=== PATIENT | female | born 1965 | race Caucasian/White ===

== ENCOUNTER 2017-11-07 23:33 | Emergency (ER) | payer SELFPAY ==
[~2017-11-07] VITALS: Ht 175.3 cm; Wt 81.7 kg
[~2017-11-07 23:33] MED LIST: CIPR250 PO; IBUP400 PO; NAPR500 PO; TRAM50 PO
[2017-11-08] MEDS ORDERED: Estroven Regu400 MCG PO (00:03)
[2017-11-08] MEDS ORDERED: Cleocin HCl300 MG PO (00:04)
== END 2017-11-08 00:31 | disposition home or self-care (01) ==
LOC: ER 23:33
DX: K04.7 Periapical abscess without sinus (principal); Z88.0 Allergy status to penicillin; F17.200 Nicotine dependence, unspecified, uncomplicated; Z88.2 Allergy status to sulfonamides; Z79.899 Other long term (current) drug therapy; Z79.2 Long term (current) use of antibiotics
CPT/HCPCS: 99283

== ENCOUNTER 2019-04-24 12:42 | Emergency (ER) | payer OTHER ==
[~2019-04-24] VITALS: Ht 175.3 cm; Wt 81.7 kg
[~2019-04-24 12:42] MED LIST changes: +Cleocin HCl300 MG PO; +Estroven Regu400 MCG PO
[2019-04-24 13:34] LABS: Source, Urine Clean Catch
[2019-04-24 13:37] LABS: Bilirubin, Urine Neg (Neg); Blood, Urine 1+ (Neg); Glucose Qualitative, Urine Neg (Neg); Ketones, Urine Neg (Neg); Leukocyte Esterase, Urine Neg (Neg); Nitrite, Urine Neg (Neg); Protein, Urine Neg (Neg); Urobilinogen, Urine NORM (Normal)
[2019-04-24 13:40] LABS: BASOPHILS PERCENT AUTO 1 % (0-2); EOSINOPHILS ABSOLUTE AUTO 0.23 K/mm3 (0.00-0.68); EOSINOPHILS PERCENT AUTO 2 % (0-6); Hemoglobin 16.3 g/dL (11.5-16.0); IMMATURE GRAN ABSOLUTE AUTO 0.06 K/mm3 (0.00-0.10); IMMATURE GRAN PERCENT AUTO 0 % (0-1); LYMPHOCYTES ABSOLUTE AUTO 3.25 K/mm3 (0.84-5.20); LYMPHOCYTES PERCENT AUTO 23 % (21-46); MONOCYTES PERCENT AUTO 6 % (4-13); Mean Corpuscular HGB 30.3 pg (26.0-34.0); Mean Corpuscular HGB Conc 32.6 g/dL (31.5-36.5); Mean Corpuscular Volume 93 fL (80-100); Mean Platelet Volume 9.3 fL (9.1-12.4); NEUTROPHILS ABSOLUTE AUTO 9.96 K/mm3 (1.96-9.15); NEUTROPHILS PERCENT AUTO 69 % (41-73); Platelet Count 383 K/mm3 (150-400); RDW Coefficient Variation 12.9 % (11.7-14.2); RDW Standard Deviation 44.1 fL (35.1-46.3); Red Blood Cell Count 5.38 M/mm3 (3.80-5.20)
[2019-04-24 13:53] LABS: Appearance, Urine Clear (Clear); Color, Urine Yellow (P-Yellow)
[2019-04-24 13:56] LABS: Red Blood Cells, Urine 0-2 /hpf (0-2); White Blood Cells, Urine 0-2 /hpf (0-5)
[2019-04-24 13:57] LABS: Bacteria Not Seen /hpf; Squamous Epithelial Cells Few /hpf (Few)
[2019-04-24 14:02] LABS: Alanine Aminotransfer (ALT/SGP 37 U/L (12-78); Albumin/Globulin Ratio 1.1 (0.8-1.8); Alk Phos 112 U/L (50-136); Anion Gap 4 mmol/L (6-16); Aspartate Aminotrans (AST/SGOT 25 U/L (12-37); Bilirubin, Total 0.3 mg/dL (0.1-1.0); Blood Urea Nitrogen 13 mg/dL (8-24); Bun/Creatinine Ratio 21.4 (12.0-20.0); CO2, Blood 27 mmol/L (21-32); Calcium, Blood 9.7 mg/dL (8.5-10.1); Chloride, Blood 109 mmol/L (98-108); Creatinine, Blood 0.61 mg/dL (0.40-1.00); Globulin, Blood 3.8 g/dL (2.2-4.0); Glomerular Filtration Rate >60 (60-); Glucose, Blood 112 mg/dL (70-99); Potassium, Blood 5.3 mmol/L (3.5-5.5); Sodium, Blood 140 mmol/L (136-145); Total Protein, Blood 7.8 g/dL (6.4-8.2)
[2019-04-24] MEDS ORDERED: ALBU90OI61 INH (16:09)
[2019-04-24] MEDS ORDERED: KETO10 PO (16:09)
== END 2019-04-24 16:40 | disposition home or self-care (01) ==
LOC: ER 12:42
PROVIDERS: Physician Assistant
DX: S39.012A Strain of muscle, fascia and tendon of lower back, initial encounter (principal); X58.XXXA Exposure to other specified factors, initial encounter; Z87.891 Personal history of nicotine dependence
CPT/HCPCS: 36415; 71046; 74177; 80053; 81001; 85025; 99284-25; Q9967

== ENCOUNTER → 2019-09-23 | Outpatient (CLI) | payer OTHER ==
[~2019-09-23] MED LIST changes: +ALBU90OI61 INH; +KETO10 PO
== END | disposition home or self-care (01) ==
LOC: LAB SHORT 15:35 → LAB 15:35
DX: L82.1 Other seborrheic keratosis (principal)
CPT/HCPCS: 88305

== ENCOUNTER 2020-04-20 06:47 | Day surgery (SDC) | payer OTHER ==
[~2020-04-20] VITALS: Ht 175.3 cm; Wt 80.4 kg
== END 2020-04-20 08:54 | disposition home or self-care (01) ==
LOC: ORSCSDS 06:47
PROVIDERS: Internal Medicine Gastroenterology
PROC: 0DBH8ZX Excision of Cecum, Via Natural or Artificial Opening Endoscopic, Diagnostic (ICD-10-PCS; principal; 2020-04-20 08:00)
PROC: 0DBN8ZX Excision of Sigmoid Colon, Via Natural or Artificial Opening Endoscopic, Diagnostic (ICD-10-PCS; principal; 2020-04-20 08:00)
DX: Z12.11 Encounter for screening for malignant neoplasm of colon (principal); D12.0 Benign neoplasm of cecum; D12.5 Benign neoplasm of sigmoid colon; E11.9 Type 2 diabetes mellitus without complications; K64.8 Other hemorrhoids; Z79.899 Other long term (current) drug therapy
CPT/HCPCS: 88305; J0330; J0461; J2405; J2704; J7120

== ENCOUNTER 2020-12-28 22:05 | Emergency (ER) | payer OTHER ==
[~2020-12-28] VITALS: Ht 175.3 cm; Wt 83.9 kg
== END 2020-12-29 00:41 | disposition home or self-care (01) ==
LOC: ER 22:05
DX: H53.9 Unspecified visual disturbance (principal); Z87.891 Personal history of nicotine dependence
CPT/HCPCS: 93005; 93010; 99284-25

== ENCOUNTER → 2023-01-25 | Outpatient (CLI) | payer OTHER ==
[2023-01-25 16:29] LABS: BASOPHILS ABSOLUTE AUTO 0.09 K/mm3 (0.00-0.23); BASOPHILS PERCENT AUTO 1 % (0-2); EOSINOPHILS ABSOLUTE AUTO 0.18 K/mm3 (0.00-0.68); EOSINOPHILS PERCENT AUTO 2 % (0-6); Hematocrit 47.7 % (33.0-51.0); Hemoglobin 16.3 g/dL (11.5-16.0); IMMATURE GRAN ABSOLUTE AUTO 0.05 K/mm3 (0.00-0.10); IMMATURE GRAN PERCENT AUTO 0 % (0-1); LYMPHOCYTES PERCENT AUTO 35 % (21-46); MONOCYTES ABSOLUTE AUTO 0.62 K/mm3 (0.16-1.47); MONOCYTES PERCENT AUTO 6 % (4-13); Mean Corpuscular HGB 30.5 pg (26.0-34.0); Mean Corpuscular HGB Conc 34.2 g/dL (31.5-36.5); Mean Corpuscular Volume 89 fL (80-100); Mean Platelet Volume 9.2 fL (9.1-12.4); NEUTROPHILS ABSOLUTE AUTO 6.48 K/mm3 (1.96-9.15); NEUTROPHILS PERCENT AUTO 57 % (41-73); Platelet Count 336 K/mm3 (150-400); RDW Coefficient Variation 12.9 % (11.7-14.2); RDW Standard Deviation 41.9 fL (35.1-46.3); Red Blood Cell Count 5.35 M/mm3 (3.80-5.20); White Blood Cell Count 11.32 K/mm3 (4.00-11.30)
[2023-01-25 16:38] LABS: Albumin, Blood 4.1 g/dL (3.4-5.0); Albumin/Globulin Ratio 1.2 (0.8-1.8); Bilirubin, Total 0.3 mg/dL (0.1-1.0); Bun/Creatinine Ratio 14.1 (12.0-20.0); Creatinine, Blood 0.71 mg/dL (0.40-1.00); Globulin, Blood 3.5 g/dL (2.2-4.0); Total Protein, Blood 7.6 g/dL (6.4-8.2)
== END | disposition home or self-care (01) ==
LOC: LAB SHORT 16:24
PROVIDERS: Chiropractor
DX: E66.3 Overweight (principal)
CPT/HCPCS: 80053; 83036; 85025

== ENCOUNTER → 2025-05-21 | Outpatient (CLI) | payer OTHER ==
[2025-05-21 13:32] LABS: Source, Urine Clean Catch
[2025-05-21 14:17] LABS: Bilirubin, Urine Neg (Neg); Color, Urine Amber (P-Yellow); Glucose Qualitative, Urine 4+ (Neg); Ketones, Urine 1+ (Neg); Leukocyte Esterase, Urine 2+ (Neg); Protein, Urine 3+ (Neg); Specific Gravity, Urine 1.020 (1.003-1.022); Urobilinogen, Urine NORM (Normal)
[2025-05-21 14:44] LABS: Red Blood Cells, Urine 50-100 /hpf (0-2)
== END ==
LOC: LAB 11:46 → LAB SHORT 11:46
PROVIDERS: Family Medicine
DX: R30.9 Painful micturition, unspecified (principal)
CPT/HCPCS: 81001; 87086